=== PATIENT | female | born 1995 | race Caucasian/White ===

== ENCOUNTER 2021-01-31 12:20 | Outpatient (CLI) | payer OTHER | END 2021-01-31 17:16 | disposition home or self-care (01) | LOC: GENOP 12:20 | DX: O21.9 Vomiting of pregnancy, unspecified (principal); Z3A.00 Weeks of gestation of pregnancy not specified | CPT/HCPCS: 81001; 96365; 96366; 96367; C9113; J2405; J2550; J7120 ==

== ENCOUNTER 2021-03-07 22:46 | Outpatient (CLI) | payer OTHER | END 2021-03-08 00:43 | disposition home or self-care (01) | LOC: GENOP 22:46 | DX: O26.853 Spotting complicating pregnancy, third trimester (principal); O12.03 Gestational edema, third trimester; O99.891 Other specified diseases and conditions complicating pregnancy; M54.5 Low back pain; R11.0 Nausea; O13.3 Gestational [pregnancy-induced] hypertension without significant proteinuria, third trimester; O99.343 Other mental disorders complicating pregnancy, third trimester; F32.9 Major depressive disorder, single episode, unspecified; O99.213 Obesity complicating pregnancy, third trimester; E66.01 Morbid (severe) obesity due to excess calories; Z3A.28 28 weeks gestation of pregnancy; Z79.899 Other long term (current) drug therapy | CPT/HCPCS: 59025 ==

== ENCOUNTER 2021-03-18 23:14 | Emergency (ER) | payer OTHER ==
[2021-03-19 00:43] LABS: HEMOGLOBIN 10.8 gm/dl (12.3-15.3); RED BLOOD COUNT 3.84 M/UL (4.00-5.10)
[2021-03-19 00:57] LABS: BUN/CREATININE RATIO 9 (0-10)
[2021-03-19] MEDS ORDERED: MACROBID 100 M100 M1 PO (04:13)
== END 2021-03-19 04:22 | disposition home or self-care (01) ==
LOC: ER1 23:14
PROVIDERS: Emergency Medicine
DX: O23.43 Unspecified infection of urinary tract in pregnancy, third trimester (principal); O16.3 Unspecified maternal hypertension, third trimester; Z3A.29 29 weeks gestation of pregnancy; Z20.822 Contact with and (suspected) exposure to COVID-19
CPT/HCPCS: 0240U; 80053; 81001; 83605; 83690; 83735; 85025; 87040; 87086; 96374; 96375; 99283; J0696; J2765; J7030

== ENCOUNTER 2021-03-22 18:02 | Outpatient (CLI) | payer OTHER ==
[~2021-03-22 18:02] MED LIST: MACROBID 100 M100 M1 PO
== END 2021-03-22 23:30 | disposition home or self-care (01) ==
LOC: GENOP 18:02
DX: O99.891 Other specified diseases and conditions complicating pregnancy (principal); R50.9 Fever, unspecified; Z20.822 Contact with and (suspected) exposure to COVID-19; Z3A.30 30 weeks gestation of pregnancy
CPT/HCPCS: 36415; 59025; 81001; 86403; 87086; 96360; 96361; 96368; J0295; J0696; U0002

== ENCOUNTER 2021-05-09 13:51 | Outpatient (CLI) | payer OTHER | END 2021-05-09 15:41 | disposition home or self-care (01) | LOC: GENOP 13:51 | DX: O98.513 Other viral diseases complicating pregnancy, third trimester (principal); O10.913 Unspecified pre-existing hypertension complicating pregnancy, third trimester; O99.343 Other mental disorders complicating pregnancy, third trimester; F32.9 Major depressive disorder, single episode, unspecified; O99.213 Obesity complicating pregnancy, third trimester; E66.01 Morbid (severe) obesity due to excess calories; Z79.899 Other long term (current) drug therapy; Z3A.37 37 weeks gestation of pregnancy | CPT/HCPCS: 59025 ==